=== PATIENT | male | born 1990 | race Caucasian/White ===

== ENCOUNTER 2023-01-25 18:19 | Emergency (ER) | payer MEDICAID ==
[~2023-01-25] VITALS: Ht 177.8 cm; Wt 99.8 kg
[2023-01-25 18:54] VITALS: BP_SYST 145; PULSE 84; RESP 18; TEMP 97.8; O2SAT 98
[2023-01-25] MEDS ORDERED: IBUP-1969 PO ×2 (19:42→20:00)
[2023-01-25] MEDS ORDERED: ACYC-133 PO ×2 (19:42→20:00)
== END 2023-01-25 21:15 | disposition home or self-care (01) ==
LOC: SED 18:19
DX: B02.9 Zoster without complications (principal); R21 Rash and other nonspecific skin eruption; R20.2 Paresthesia of skin; Z79.899 Other long term (current) drug therapy
CPT/HCPCS: 99281; 99283

== ENCOUNTER 2023-03-02 11:26 | Emergency (ER) | payer MEDICAID ==
[~2023-03-02] VITALS: Ht 177.8 cm; Wt 99.8 kg
[~2023-03-02 11:26] MED LIST: ACYC-133 PO; IBUP-1969 PO
[2023-03-02 11:54] VITALS: BP_SYST 136; PULSE 68; RESP 16; TEMP 97.4; O2SAT 100
[2023-03-02] MEDS ORDERED: ACYC400T19 PO (13:11)
== END 2023-03-02 13:43 | disposition home or self-care (01) ==
LOC: SED 11:26
DX: Z76.0 Encounter for issue of repeat prescription (principal); A60.00 Herpesviral infection of urogenital system, unspecified; Z79.899 Other long term (current) drug therapy
CPT/HCPCS: 99281